=== PATIENT | female | born 2000 | race Caucasian/White ===

== ENCOUNTER 2023-10-29 01:24 | Emergency (ER) | payer BC ==
[~2023-10-29] VITALS: Ht 162.6 cm; Wt 54.4 kg
[2023-10-29 01:37] VITALS: BP_SYST 128; PULSE 70; RESP 16; TEMP 97.7; O2SAT 98
[2023-10-29 02:02] LABS: BILIRUBIN,URINE NEGATIVE (NEGATIVE); BLOOD, URINE 1+ (NEGATIVE); COLOR,URINE YELLOW (YELLOW); GLUCOSE,URINE NEGATIVE (NEGATIVE); KETONES,URINE NEGATIVE (NEGATIVE); LEUKOCYTE ESTERASE ,URINE NEGATIVE (NEGATIVE); NITRITE, URINE NEGATIVE (NEGATIVE); PROTEIN URINE NEGATIVE (NEGATIVE); UROBILINOGEN,URINE 0.2 (0.2-1.0)
[2023-10-29 02:11] LABS: CLARITY/URINE HAZY (CLEAR)
[2023-10-29 02:12] LABS: BACTERIA,URINE None Seen /HPF (None Seen); WBC,URINE 0-3 /HPF (0-3)
[2023-10-29] MEDS: cefTRIAXone 1 GM in LIDOCAINE 1%, 20 ML MDV 2.1 ML IM ONE (02:32)
[2023-10-29] MEDS ORDERED: CIPR500T5 PO (02:47)
[2023-10-29] MEDS ORDERED: PHEN-726 PO (02:47)
[2023-10-29 02:51] VITALS: BP_SYST 128; PULSE 70; RESP 16; TEMP 97.7; O2SAT 98
== END 2023-10-29 02:50 | disposition home or self-care (01) ==
LOC: SED 01:24
DX: N39.0 Urinary tract infection, site not specified (principal); R30.9 Painful micturition, unspecified; Z79.899 Other long term (current) drug therapy
CPT/HCPCS: 99283; 81001; 96372; 81000; 81015; J0696; J2001